=== PATIENT | female | born 1980 | race Caucasian/White ===

== ENCOUNTER 2017-01-19 03:26 | Emergency (ER) | payer SELFPAY ==
[~2017-01-19] VITALS: Ht 154.9 cm; Wt 69.8 kg
[~2017-01-19 03:26] MED LIST: [UNRECOGNIZED DRUG - REMARK]
[2017-01-19 03:39] VITALS: Ht 154.9 cm; Wt 69.8 kg
== END 2017-01-19 04:04 | disposition left against medical advice (07) ==
LOC: FTE 03:26
DX: Z53.21 Procedure and treatment not carried out due to patient leaving prior to being seen by health care provider (principal)